=== PATIENT | male | born 1990 | race Two or more races ===

== ENCOUNTER 2024-08-20 12:08 | Emergency (ER) | payer SELFPAY ==
[~2024-08-20] VITALS: Ht 177.8 cm; Wt 81.2 kg
[2024-08-20 12:20] VITALS: BP 128/82; TEMP 98.4
[2024-08-20] MEDS ORDERED: NAPR-1164 PO (13:41)
[2024-08-20] MEDS ORDERED: ASPI-992 PO (15:43)
[2024-08-20] MEDS ORDERED: ASPIRIN 81 MG TAB.CHEW ONE (15:50)
[2024-08-20] MEDS: ASPIRIN 81 MG TAB.CHEW PO ONE (15:54)
[2024-08-20 16:14] VITALS: O2SAT 99
== END 2024-08-20 16:15 | disposition home or self-care (01) ==
LOC: ER 12:15
DX: M77.52 Other enthesopathy of left foot and ankle (principal); F17.200 Nicotine dependence, unspecified, uncomplicated
CPT/HCPCS: 73610-TC; 93971-TC